=== PATIENT | male | born 1930 | race Caucasian/White ===

== ENCOUNTER 2020-09-02 08:19 | Emergency (ER) | payer OTHER ==
[~2020-09-02] VITALS: Ht 182.8 cm; Wt 59.0 kg
[~2020-09-02 08:19] MED LIST: FLEXERIL10 MG PO; KEFLEX500 MG PO; VICODIN ES 7501 TAB PO
[2020-09-02] MEDS ORDERED: PREDNISONE50 MG PO (09:02)
== END 2020-09-02 09:43 | disposition home or self-care (01) ==
LOC: ED 08:19
DX: M19.90 Unspecified osteoarthritis, unspecified site (principal); M79.18 Myalgia, other site; D69.2 Other nonthrombocytopenic purpura; M25.511 Pain in right shoulder; M25.512 Pain in left shoulder; M54.2 Cervicalgia

== ENCOUNTER 2020-09-08 09:09 | Emergency (ER) | payer OTHER ==
[~2020-09-08] VITALS: Ht 182.8 cm; Wt 57.6 kg
[~2020-09-08 09:09] MED LIST changes: +PREDNISONE50 MG PO
[2020-09-08] MEDS ORDERED: TRAMADOL HCL50 MG PO (12:28)
== END 2020-09-08 12:59 | disposition home or self-care (01) ==
LOC: ED 09:09
DX: M19.011 Primary osteoarthritis, right shoulder (principal); M19.012 Primary osteoarthritis, left shoulder; Z79.899 Other long term (current) drug therapy

== ENCOUNTER 2021-11-16 15:51 | Emergency (ER) | payer OTHER ==
[~2021-11-16] VITALS: Ht 193 cm; Wt 54.4 kg
[~2021-11-16 15:51] MED LIST changes: +TRAMADOL HCL50 MG PO
[2021-11-16] MEDS ORDERED: Lopressor25 MG PO (16:36)
[2021-11-16] MEDS ORDERED: SIMVASTATIN40 MG PO (16:36)
[2021-11-16] MEDS ORDERED: LISINOPRIL10 M1 PO (16:36)
[2021-11-16] MEDS ORDERED: REFRESH TEARS15 ML OP (16:38)
[2021-11-16] MEDS ORDERED: NITRO-DUR1 EAC3 T (16:38)
[2021-11-16 18:26] LABS: HEMATOCRIT 34.3 % (42.0-52.0); LYMPH # 0.3 10*3/uL (1.3-4.4); LYMPH % 5.2 % (27.0-41.0); MEAN CELL VOLUME 97.7 fl (80.0-94.0); MEAN CORPUSCULAR HGB 32.8 pg (27.0-31.0); MEAN CORPUSCULAR HGB CONC 33.5 g/dl (33.0-37.0); MEAN PLATELET VOLUME 9.7 fl (9.6-12.3); MONO # 0.6 10*3/uL (0.1-1.0); MONO % 8.9 % (3.0-9.0); NEUT # 5.3 10*3/uL (2.3-7.9); NEUT % 85.7 % (47.0-73.0); PLATELET COUNT AUTOMATED 147 10*3/uL (130-400); RED BLOOD COUNT 3.51 10*6/uL (4.50-5.90); RED CELL DISTRI WIDTH 13.1 % (0-14.5); WHITE BLOOD COUNT 6.2 10*3/uL (4.8-10.8)
[2021-11-16 18:39] LABS: ACT PARTIAL THROMBO TIME 30.3 SECONDS (20.0-32.1); INTERNATIONAL NORM RATIO 1.1 (2.0-3.5)
[2021-11-16 18:52] LABS: CREATININE 1.37 mg/dL (0.70-1.30); POTASSIUM 4.2 mmol/L (3.5-5.1)
[2021-11-16 20:08] LABS: BILIRUBIN Negative (Negative); BLOOD 1+ (Negative); CLARITY Clear (Clear); COLOR Yellow (Yellow); GLUCOSE Negative (Negative); KETONE 1+ (Negative); LEUKO ESTERASE Negative (Negative); NITRITE Negative (Negative); PH 5.5 (4.5-8.0)
[2021-11-16 20:24] LABS: BACTERIA 2+
[2021-11-16 20:25] LABS: EPITHELIAL CELLS 0-2; WBC 0-2 wbc/hpf (0-5)
[2021-11-16] MEDS ORDERED: Molnupiravir PO (21:52)
[2021-11-16] MEDS ORDERED: OMNICEF300 MG PO (21:52)
== END 2021-11-16 21:57 | disposition home or self-care (01) ==
LOC: ED 15:51
PROVIDERS: Emergency Medicine
DX: U07.1 COVID-19 (principal); J12.82 Pneumonia due to coronavirus disease 2019; Z79.899 Other long term (current) drug therapy